=== PATIENT | male | born 1970 | race Caucasian/White ===

== ENCOUNTER 2018-12-26 17:40 | Emergency (ER) | payer BC ==
[~2018-12-26] VITALS: Ht 177.8 cm; Wt 92.0 kg
[2018-12-26] MEDS ORDERED: ibuprofen tablet 400 MG TABLET PO ONE (19:25)
[2018-12-26 20:22] VITALS: BP 134/82
--- NOTE | 2018-12-26 20:26 | NUR ---
MONO LAB DRAWN. PT WITH STABLE VS.
--- NOTE | 2018-12-26 20:36 | NUR ---
MON SCREEN PENDING. DC WITH
[2018-12-26 20:42] LABS: MONOTEST NEGATIVE (Neg)
== END 2018-12-26 21:04 | disposition home or self-care (01) ==
LOC: ER 17:40
DX: J06.9 Acute upper respiratory infection, unspecified (principal)
CPT/HCPCS: 36415; 71046; 86308; 87081; 87880; 99284